=== PATIENT | female | born 1955 | race Caucasian/White ===

== ENCOUNTER → 2018-01-05 | Outpatient (CLI) | payer OTHER ==
[~2018-01-05] MED LIST: ACET325 PO; ACIDOPHILUS PR1 EACH PO; ALBU.083IS IH; ALBU3IS; ALBU3IS INH; ALBU8HFA2 INH; ALBU90I INH; ALBU90OI INH; ALBU90OI6 INH; AMIO200; AMIO200 PO; ASPI325 PO; AZIT250 PO; Aldactone25 MG PO; Amiodarone HCl200 MG PO; Azithromycin500 MG PO; BUME2; BUME2 PO; Benadryl 50 mg50 MG PO; Bumetanide2 MG PO; CALCAVITD PO; CALCIUM 600 +1 EAC1 PO; CARV25 PO; CARV3.125 PO; CARV6.25; CARV6.25 PO; CLIN150; CLIN150 PO; CLIN300 PO; CLON.5 PO; COLCRYS0.6 MG PO; CYCL10 PO; Coral Calcium1 EAC3 PO; DIGO.125 PO; DIGO.25 PO; DIPH12.5EL PO; DIPH25 PO; DIPH50 PO; DOCU100 PO; DOXY100 PO; ENDOCET PO; ERGO50000 PO; FAMO20 PO; FERR325 PO; FLONASE SENSIM9.9 ML; FLUSAL115; FLUSAL2505 IH; FLUSAL2505 INH; FURO20; FURO20 PO; FURO40 PO; Ferrous Sulfat325 M2 PO; GABA100 PO; GABA300 PO; GABA600 PO; GLARGINE INSULIN; GLIP10 PO; GLIP5 PO; GLIP5ER PO; GUAI100SY PO; Glucotrol Xl10 MG PO; HYDACE10B PO; HYDACE5 PO; HYDCHL25 PO; HYDR1TAB94 PO; INSR10I; INSUASPI INJ; INSUASPI SC; INSUASPI SQ; INSUASPI SUBQ; INSULANI SC; INSULANI SUBQ; INSULANPEN; INSULANPEN INJ; INSULANPEN SC; INSULANPEN SQ; IPRAIS NEB; Ipratr-Albuterol3 ML INH; Klor-Con 1010 MEQ PO; LISI5 PO; LORA1; LORA1 PO; LOSA25 PO; LOSA50 PO; Lantus100 UNIT/1 SQ; Lisinopril2.5 MG; MAGOXI400 PO; METF500 PO; METH10 PO; METPRE4DP PO; MONT10T PO; NYST100P TOP; NYST100SU MT; Norco 10-325 T1 EACH PO; Norco 5-325 Ta1 EACH PO; Novolin R100 UNIT/M; Novolog Fl100 UNIT/1 INJ; Novolog100 UNIT/2; OMEP20ER PO; OMEP40CA12 PO; OXYGEN; PANT40 PO; POTA10T PO; POTCHL10ER PO; POTCHL20ER PO; PRED10; PRENZ PO; PROM25 PO; Percocet 5-3251 EACH PO; RANI150 PO; RXCODGUASY PO; RXPROCODSY PO; SENN187 PO; SITA50T2 PO; SPIR25 PO; SPIR50 PO; STOOL SOFTENER100 MG PO; Singulair10 MG PO; TIOT18; TIOT18 IH; TIOT18 INH; TORSE20 PO; TOUJEO SOL300 UNIT/1; TOUJEO SOL300 UNIT/1 SC; TRULICITY0.75 MG/0. SC; VICODIN; WARF1 PO; WARF2 PO; WARF2.5 PO; WARF3 PO; WARF4 PO
[2018-01-05 17:44] LABS: U Benzodiazapine Screen DETECTED
[2018-01-05 17:45] LABS: U Amphetamine Screen Not Detected; U Barbituate Screen Not Detected; U Buprenorphine Screen Not Detected; U Cannabinoids Screen Not Detected; U Cocaine Screen Not Detected; U Methadone Screen Not Detected; U Methamphetamine Screen Not Detected; U Opiates Screen Not Detected; U Oxycodone Screen Not Detected; U Phencyclidine Screen Not Detected; U Propoxyphene Screen Not Detected
[2018-01-07 22:07] LABS: Alpha Hyrdroxyalprazolam Not Detected (NOTDET); Alpha hydroxytriazolam Not Detected (NOTDET); Alprazolam Not Detected (NOTDET); Confirm Clonazepam LC/MS Not Detected (NOTDET); Confirm Flunitrazepam LC/MS Not Detected (NOTDET); Diazepam Not Detected (NOTDET); Flurazepam Not Detected (NOTDET); Lorazepam 440.9 ng/mL (NOTDET); Midazolam Not Detected (NOTDET); Temazepam Not Detected (NOTDET)
== END ==
LOC: LAB 17:09
PROVIDERS: Internal Medicine
DX: Z51.81 Encounter for therapeutic drug level monitoring (principal); Z79.899 Other long term (current) drug therapy
CPT/HCPCS: G0480

== ENCOUNTER 2018-01-29 11:27 | Emergency (ER) | payer OTHER ==
[~2018-01-29] VITALS: Ht 160 cm; Wt 122.5 kg
[~2018-01-29 11:27] MED LIST changes: -COLCRYS0.6 MG PO; -HYDR1TAB94 PO; -Percocet 5-3251 EACH PO; -TOUJEO SOL300 UNIT/1 SC; -TRULICITY0.75 MG/0. SC
[2018-01-29] MEDS ORDERED: TOUJEO SOL300 UNIT/1 SC (12:12)
[2018-01-29] MEDS ORDERED: TRULICITY0.75 MG/0. SC (12:13)
[2018-01-29 13:21] LABS: International Normalized Ratio 1.89; Prothrombin Time Results 20.1 Sec (9.7-11.5)
[2018-01-29] MEDS ORDERED: WARF3 PO (13:58)
[2018-01-29] MEDS ORDERED: Percocet 5-3251 EACH PO (13:59)
[2018-08-02] MEDS ORDERED: HYDR1TAB94 PO (18:15)
[2018-09-21] MEDS ORDERED: CLIN300 PO (16:24)
[2018-09-21] MEDS ORDERED: COLCRYS0.6 MG PO (16:24)
== END 2018-01-29 14:07 | disposition home or self-care (01) ==
LOC: ER 11:27
PROVIDERS: Physician Assistant
DX: I82.4Z1 Acute embolism and thrombosis of unspecified deep veins of right distal lower extremity (principal); Z88.8 Allergy status to other drugs, medicaments and biological substances; Z88.6 Allergy status to analgesic agent; Z88.0 Allergy status to penicillin; Z88.2 Allergy status to sulfonamides; Z79.4 Long term (current) use of insulin; Z79.899 Other long term (current) drug therapy; Z79.01 Long term (current) use of anticoagulants; I11.0 Hypertensive heart disease with heart failure; I50.9 Heart failure, unspecified; I48.91 Unspecified atrial fibrillation; E66.01 Morbid (severe) obesity due to excess calories; J44.9 Chronic obstructive pulmonary disease, unspecified; E11.9 Type 2 diabetes mellitus without complications; K21.9 Gastro-esophageal reflux disease without esophagitis; Z87.891 Personal history of nicotine dependence
CPT/HCPCS: 36415; 85610; 93971; 99284

== ENCOUNTER → 2018-02-05 | Outpatient (CLI) | payer OTHER ==
[~2018-02-05] MED LIST changes: +COLCRYS0.6 MG PO; +HYDR1TAB94 PO; +Percocet 5-3251 EACH PO; +TOUJEO SOL300 UNIT/1 SC; +TRULICITY0.75 MG/0. SC
[2018-02-06 13:16] LABS: U Amphetamine Screen Not Detected; U Barbituate Screen Not Detected; U Benzodiazapine Screen DETECTED; U Buprenorphine Screen Not Detected; U Cannabinoids Screen Not Detected; U Cocaine Screen Not Detected; U Methadone Screen Not Detected; U Methamphetamine Screen Not Detected; U Opiates Screen Not Detected; U Oxycodone Screen DETECTED; U Phencyclidine Screen Not Detected; U Propoxyphene Screen Not Detected
[2018-02-09 18:42] LABS: Alpha Hyrdroxyalprazolam Not Detected (NOTDET); Alpha hydroxytriazolam Not Detected (NOTDET); Alprazolam Not Detected (NOTDET); Confirm Clonazepam LC/MS Not Detected (NOTDET); Confirm Flunitrazepam LC/MS Not Detected (NOTDET); Diazepam Not Detected (NOTDET); Flurazepam Not Detected (NOTDET); Lorazepam 410.9 ng/mL (NOTDET); Midazolam Not Detected (NOTDET); Temazepam Not Detected (NOTDET)
[2018-02-09 18:56] LABS: Codeine Not Detected (NOTDET); Hydrocodone Not Detected (NOTDET); Hydromorphone Not Detected (NOTDET); Morphine Not Detected (NOTDET); Norhydrocodone Not Detected (NOTDET); Noroxycodone 204 ng/mL (NOTDET)
== END ==
LOC: LAB SHORT 12:53 → LAB 12:53
PROVIDERS: Internal Medicine
DX: Z51.81 Encounter for therapeutic drug level monitoring (principal); Z79.899 Other long term (current) drug therapy
CPT/HCPCS: G0480

== ENCOUNTER 2018-04-13 11:16 | Emergency (ER) | payer OTHER ==
[~2018-04-13] VITALS: Ht 160 cm; Wt 121.6 kg
[~2018-04-13 11:16] MED LIST changes: -COLCRYS0.6 MG PO; -HYDR1TAB94 PO
[2018-04-13 13:17] LABS: International Normalized Ratio 1.89
[2018-04-13] MEDS ORDERED: Percocet 5-3251 EACH PO (14:01)
== END 2018-04-13 14:26 | disposition home or self-care (01) ==
LOC: ER 11:16
PROVIDERS: Physician Assistant
DX: M25.462 Effusion, left knee (principal); R79.1 Abnormal coagulation profile; M17.12 Unilateral primary osteoarthritis, left knee; I11.0 Hypertensive heart disease with heart failure; I50.9 Heart failure, unspecified; I48.91 Unspecified atrial fibrillation; J44.9 Chronic obstructive pulmonary disease, unspecified; E11.9 Type 2 diabetes mellitus without complications; K21.9 Gastro-esophageal reflux disease without esophagitis; F17.210 Nicotine dependence, cigarettes, uncomplicated; Z88.1 Allergy status to other antibiotic agents; Z88.6 Allergy status to analgesic agent; Z88.0 Allergy status to penicillin; Z88.2 Allergy status to sulfonamides; Z88.8 Allergy status to other drugs, medicaments and biological substances; Z79.899 Other long term (current) drug therapy; Z79.4 Long term (current) use of insulin; Z79.01 Long term (current) use of anticoagulants
CPT/HCPCS: 29580; 73564; 85610; 93971; 99284

== ENCOUNTER → 2018-11-06 | Outpatient (CLI) | payer OTHER ==
[~2018-11-06] MED LIST changes: +COLCRYS0.6 MG PO; +HYDR1TAB94 PO
[2018-11-06 17:49] LABS: U Amphetamine Screen Not Detected; U Barbituate Screen Not Detected; U Benzodiazapine Screen DETECTED; U Buprenorphine Screen Not Detected; U Cannabinoids Screen Not Detected; U Cocaine Screen Not Detected; U Methadone Screen Not Detected; U Methamphetamine Screen Not Detected; U Opiates Screen Not Detected; U Oxycodone Screen Not Detected; U Phencyclidine Screen Not Detected; U Propoxyphene Screen Not Detected
== END | disposition home or self-care (01) ==
LOC: LAB 11:29 → LAB SHORT 11:29
PROVIDERS: Internal Medicine
DX: Z51.81 Encounter for therapeutic drug level monitoring (principal); Z79.891 Long term (current) use of opiate analgesic
CPT/HCPCS: G0480

== ENCOUNTER 2019-01-13 09:30 | Emergency (ER) | payer OTHER ==
[~2019-01-13] VITALS: Ht 160 cm; Wt 104.3 kg
[2019-01-13] MEDS ORDERED: Percocet 5-3251 EACH PO (11:16)
[2019-01-13] MEDS ORDERED: Neurontin 300300 MG PO (11:16)
== END 2019-01-13 11:27 | disposition home or self-care (01) ==
LOC: ER 09:30
DX: M54.30 Sciatica, unspecified side (principal); I50.9 Heart failure, unspecified; I48.91 Unspecified atrial fibrillation; J44.9 Chronic obstructive pulmonary disease, unspecified; E11.9 Type 2 diabetes mellitus without complications; K21.9 Gastro-esophageal reflux disease without esophagitis; F17.200 Nicotine dependence, unspecified, uncomplicated; Z95.0 Presence of cardiac pacemaker; Z88.0 Allergy status to penicillin; Z88.2 Allergy status to sulfonamides; Z88.8 Allergy status to other drugs, medicaments and biological substances; Z88.6 Allergy status to analgesic agent; Z79.01 Long term (current) use of anticoagulants; Z79.4 Long term (current) use of insulin; Z79.899 Other long term (current) drug therapy
CPT/HCPCS: 73502; 99283-25

== ENCOUNTER 2019-02-08 12:10 | Emergency (ER) | payer OTHER ==
[~2019-02-08] VITALS: Ht 160 cm; Wt 104.3 kg
[~2019-02-08 12:10] MED LIST changes: +Neurontin 300300 MG PO
[2019-02-08 12:57] LABS: BASOPHILS ABSOLUTE AUTO 0.08 K/mm3 (0.00-0.23); BASOPHILS PERCENT AUTO 1 % (0-2); EOSINOPHILS ABSOLUTE AUTO 0.13 K/mm3 (0.00-0.68); EOSINOPHILS PERCENT AUTO 1 % (0-6); Hematocrit 48.8 % (33.0-51.0); Hemoglobin 15.3 g/dL (11.5-16.0); IMMATURE GRAN ABSOLUTE AUTO 0.17 K/mm3 (0.00-0.10); IMMATURE GRAN PERCENT AUTO 1 % (0-1); LYMPHOCYTES ABSOLUTE AUTO 2.77 K/mm3 (0.84-5.20); LYMPHOCYTES PERCENT AUTO 17 % (21-46); MONOCYTES ABSOLUTE AUTO 1.37 K/mm3 (0.16-1.47); MONOCYTES PERCENT AUTO 8 % (4-13); Mean Corpuscular HGB 30.8 pg (26.0-34.0); Mean Corpuscular HGB Conc 31.4 g/dL (31.5-36.5); Mean Corpuscular Volume 98 fL (80-100); Mean Platelet Volume 11.4 fL (9.1-12.4); NEUTROPHILS ABSOLUTE AUTO 11.95 K/mm3 (1.96-9.15); NEUTROPHILS PERCENT AUTO 73 % (41-73); Platelet Count 230 K/mm3 (150-400); RDW Coefficient Variation 15.9 % (11.7-14.2); RDW Standard Deviation 57.6 fL (35.1-46.3); Red Blood Cell Count 4.97 M/mm3 (3.80-5.20); White Blood Cell Count 16.47 K/mm3 (4.00-11.30)
[2019-02-08 13:21] LABS: Albumin, Blood 3.1 g/dL (3.4-5.0); Albumin/Globulin Ratio 0.7 (0.8-1.8); Bilirubin, Total 0.8 mg/dL (0.1-1.0); Bun/Creatinine Ratio 11.6 (12.0-20.0); Calcium, Blood 8.6 mg/dL (8.5-10.1); Creatinine, Blood 1.29 mg/dL (0.40-1.00); Globulin, Blood 4.7 g/dL (2.2-4.0); Potassium, Blood 4.6 mmol/L (3.5-5.5); Total Protein, Blood 7.8 g/dL (6.4-8.2)
== END 2019-02-08 14:15 | disposition left against medical advice (07) ==
LOC: ER 12:10
PROVIDERS: Physician Assistant
DX: Z53.21 Procedure and treatment not carried out due to patient leaving prior to being seen by health care provider (principal)
CPT/HCPCS: 36415; 80053; 85025; 99283

== ENCOUNTER 2019-02-18 10:56 | Emergency (ER) | payer OTHER ==
[~2019-02-18] VITALS: Ht 160 cm; Wt 104.3 kg
[2019-02-18] MEDS ORDERED: Voltaren100 GM TOP (11:37)
[2019-02-18] MEDS ORDERED: Roxicodone5 MG PO (11:37)
== END 2019-02-18 12:06 | disposition home or self-care (01) ==
LOC: ER 10:56
DX: M25.552 Pain in left hip (principal); Z88.8 Allergy status to other drugs, medicaments and biological substances; Z88.6 Allergy status to analgesic agent; Z88.0 Allergy status to penicillin; Z88.2 Allergy status to sulfonamides; Z88.1 Allergy status to other antibiotic agents; Z79.899 Other long term (current) drug therapy; Z79.4 Long term (current) use of insulin; Z79.01 Long term (current) use of anticoagulants; E11.9 Type 2 diabetes mellitus without complications; I50.9 Heart failure, unspecified; I48.91 Unspecified atrial fibrillation; F17.210 Nicotine dependence, cigarettes, uncomplicated
CPT/HCPCS: 99283

== ENCOUNTER 2019-04-21 12:22 | Emergency (ER) | payer OTHER ==
[~2019-04-21] VITALS: Ht 160 cm; Wt 104.3 kg
[~2019-04-21 12:22] MED LIST changes: +Roxicodone5 MG PO; +Voltaren100 GM TOP
[2019-04-21] MEDS ORDERED: Percocet 5-3251 EACH PO (13:54)
[2019-04-21] MEDS ORDERED: Voltaren100 GM TOP (13:54)
[2019-04-21] MEDS ORDERED: Robaxin500 MG PO (13:54)
== END 2019-04-21 14:00 | disposition home or self-care (01) ==
LOC: ER 12:22
DX: M54.41 Lumbago with sciatica, right side (principal); Z88.8 Allergy status to other drugs, medicaments and biological substances; Z88.6 Allergy status to analgesic agent; Z88.0 Allergy status to penicillin; Z88.2 Allergy status to sulfonamides; Z88.1 Allergy status to other antibiotic agents; Z79.899 Other long term (current) drug therapy; Z79.4 Long term (current) use of insulin; Z79.01 Long term (current) use of anticoagulants; I48.91 Unspecified atrial fibrillation; I50.9 Heart failure, unspecified; J44.9 Chronic obstructive pulmonary disease, unspecified; E11.9 Type 2 diabetes mellitus without complications; K21.9 Gastro-esophageal reflux disease without esophagitis; F17.210 Nicotine dependence, cigarettes, uncomplicated
CPT/HCPCS: 99283

== ENCOUNTER 2019-05-08 14:34 | Emergency (ER) | payer OTHER ==
[~2019-05-08] VITALS: Ht 157.5 cm; Wt 104.3 kg
[~2019-05-08 14:34] MED LIST changes: +Robaxin500 MG PO
[2019-05-08] MEDS ORDERED: Polytrim Eye Dr10 ML LEFTEYE (14:45)
[2019-05-08] MEDS ORDERED: Prednisone20 MG PO (14:45)
[2019-05-08] MEDS ORDERED: Percocet 5-3251 EACH PO (14:45)
== END 2019-05-08 15:09 | disposition home or self-care (01) ==
LOC: ER 14:34
DX: H10.023 Other mucopurulent conjunctivitis, bilateral (principal); M54.30 Sciatica, unspecified side; I48.91 Unspecified atrial fibrillation; I11.0 Hypertensive heart disease with heart failure; I50.9 Heart failure, unspecified; J44.9 Chronic obstructive pulmonary disease, unspecified; F17.210 Nicotine dependence, cigarettes, uncomplicated; Z88.6 Allergy status to analgesic agent; Z88.2 Allergy status to sulfonamides; Z88.1 Allergy status to other antibiotic agents; Z88.0 Allergy status to penicillin; Z79.899 Other long term (current) drug therapy; E11.9 Type 2 diabetes mellitus without complications
CPT/HCPCS: 99283; A9270-GY

== ENCOUNTER 2019-05-18 10:57 | Observation (INO) | payer OTHER ==
[~2019-05-18] VITALS: Ht 160 cm; Wt 100.4 kg
[~2019-05-18 10:57] MED LIST changes: +Polytrim Eye Dr10 ML LEFTEYE; +Prednisone20 MG PO
[2019-05-18 11:56] LABS: BASOPHILS ABSOLUTE AUTO 0.07 K/mm3 (0.00-0.23); BASOPHILS PERCENT AUTO 0 % (0-2); EOSINOPHILS ABSOLUTE AUTO 0.19 K/mm3 (0.00-0.68); EOSINOPHILS PERCENT AUTO 1 % (0-6); Hematocrit 50.4 % (33.0-51.0); Hemoglobin 16.7 g/dL (11.5-16.0); IMMATURE GRAN ABSOLUTE AUTO 0.17 K/mm3 (0.00-0.10); IMMATURE GRAN PERCENT AUTO 1 % (0-1); LYMPHOCYTES ABSOLUTE AUTO 3.12 K/mm3 (0.84-5.20); LYMPHOCYTES PERCENT AUTO 20 % (21-46); MONOCYTES ABSOLUTE AUTO 1.26 K/mm3 (0.16-1.47); MONOCYTES PERCENT AUTO 8 % (4-13); Mean Corpuscular HGB 29.8 pg (26.0-34.0); Mean Corpuscular HGB Conc 33.1 g/dL (31.5-36.5); Mean Corpuscular Volume 90 fL (80-100); Mean Platelet Volume 12.5 fL (9.1-12.4); NEUTROPHILS ABSOLUTE AUTO 10.87 K/mm3 (1.96-9.15); NEUTROPHILS PERCENT AUTO 69 % (41-73); Platelet Count 223 K/mm3 (150-400); RDW Coefficient Variation 14.1 % (11.7-14.2); RDW Standard Deviation 46.4 fL (35.1-46.3); White Blood Cell Count 15.68 K/mm3 (4.00-11.30)
[2019-05-18 12:15] LABS: Albumin/Globulin Ratio 0.8 (0.8-1.8); Bilirubin, Total 0.7 mg/dL (0.1-1.0); Bun/Creatinine Ratio 14.5 (12.0-20.0); Calcium, Blood 8.9 mg/dL (8.5-10.1); Creatinine, Blood 1.38 mg/dL (0.40-1.00); Globulin, Blood 3.8 g/dL (2.2-4.0); Potassium, Blood 4.8 mmol/L (3.5-5.5); Total Protein, Blood 6.8 g/dL (6.4-8.2)
[2019-05-18 13:10] LABS: Free Thyroxine 1.56 ng/dL (0.70-1.60)
[2019-05-18 13:12] LABS: Thyroid Stimulating Hormone 1.87 uIU/mL (0.360-4.800)
[2019-05-18] MEDS ORDERED: GLIP5 PO (13:37)
[2019-05-18] MEDS ORDERED: Lisinopril2.5 MG PO (13:37)
[2019-05-18] MEDS ORDERED: Calcium + Vita1 EACH PO (13:38)
[2019-05-18] MEDS ORDERED: CARV6.25 PO (13:38)
[2019-05-18] MEDS ORDERED: PROM25 PO (13:39)
[2019-05-18] MEDS ORDERED: WARF3 PO (13:39)
[2019-05-18] MEDS ORDERED: MONT10T PO (13:39)
[2019-05-18] MEDS ORDERED: SPIR25 PO (13:39)
[2019-05-18] MEDS ORDERED: MAGOXI400 PO (13:40)
[2019-05-18] MEDS ORDERED: BANOPHEN50 MG PO (13:40)
[2019-05-18] MEDS ORDERED: FERSU300 PO (13:40)
[2019-05-18] MEDS ORDERED: Januvia50 MG PO (13:41)
[2019-05-18] MEDS ORDERED: BUME2 PO (13:41)
[2019-05-18] MEDS ORDERED: GABA300 PO (13:42)
[2019-05-18] MEDS ORDERED: TRULICITY0.75 MG/0. SC (13:42)
[2019-05-18] MEDS ORDERED: PANT40 PO (13:42)
[2019-05-18] MEDS ORDERED: NOVOLOG FL100 UNIT/1 SC (13:44)
[2019-05-18] MEDS ORDERED: TOUJEO SOL300 UNIT/1 SC (13:45)
[2019-05-18] MEDS ORDERED: SOMA250 MG PO (13:47)
[2019-05-18] MEDS ORDERED: Zofran4 MG PO (16:38)
[2019-05-18] MEDS ORDERED: ALLO100 PO (16:39)
--- NOTE | 2019-05-18 17:22 | NUR ---
PT ARRIVAL PT ARRIVE ON UNIT APROX 1620. PT IS A&Ox4 AND SBA TRANSFER FROM THE [place] TO BED. PT IS CURRENTLY ON 2L NC WITH O2 SATS IN THE 90'S. PT DENIES ANY CHEST PAIN PRESSURE, N/V OR ABNORMAL SOB AT THIS TIME. PT STATES THAT SHE HAS NOT BEEN USING HER O2 AT HOME DUE TO IT "BEING BROKEN AND THE OXYGEN PLACE NOT CALLING ME BACK." PT ALSO STATED THAT SHE HAS NOT BEEN TAKING HER BUMEX PRESCRIBED DUE TO HER HIP PAIN. PT'S L/S COARSE AND DIM T/O. BT PRESENT AND HYPOACTIVE, ABD IS SOFT AND NONTENDER TO PALP. TELE WAS PLACED AND PT IS CURRENTLY PACED IN THE 60'S. CALL LIGHT IN REACH, BED IS LOCKED AND LOW WILL CONTINUE TO MONITOR.
[2019-05-18 19:02] LABS: International Normalized Ratio 1.47
--- NOTE | 2019-05-18 19:45 | NUR ---
ASSUMED CARE AND PROVIDER CONTACTED PT CURRENTLY LYING IN BED ON HER SIDE HOLDING ONTO BED'S SIDERAIL REPORTING EXTREME PAIN TO HER R HIP AND DOWN HER LEG RELATING TO "HER SCIATIC PAIN". PT REPORTS THAT SHE TAKES SOMA, TYLENOL, DILAUDID, OR OXYCODONE AT HOME TO HELP WITH THIS PAIN. STATES THAT SHE IS ALLERGIC TO ORDERED PAIN MEDICATION, TRAMADOL- REPORTS IT GIVES HER BAD RASH THROUGHOUT HER BODY WHEN TAKEN. PROVIDER CONTACTED AND ORDERS RECEIVED FOR HOME DOSE OF SOMA WELL TYLENOL. PT NOTED TO HAVE UNNA BOOTS TO BLE'S THAT SHE STATES WERE PLACED BY VASCULAR TECHNICIAN FOR "LEAKING FROM HER LEGS AND START OF SORES". PEDAL PULSES PALPABLE, CAPILLARY REFILL WNL. DRESSINGS LEFT IN PLACE AT THIS TIME- WILL DISCUSS REMOVAL WITH PHYSICIAN IN THE AM. WILL CONTINUE WITH MONITORING AND ASSESSMENT. BED IN LOW POSITION, CALL LIGHT IN REACH.
[2019-05-19 04:05] LABS: International Normalized Ratio 1.47
[2019-05-19 04:11] LABS: Bun/Creatinine Ratio 15.3 (12.0-20.0); Calcium, Blood 8.3 mg/dL (8.5-10.1); Creatinine, Blood 1.5 mg/dL (0.40-1.00); Free Thyroxine 1.35 ng/dL (0.70-1.60)
[2019-05-19 04:13] LABS: Triiodothyronine, Free 1.86 pg/mL (2.18-3.98)
--- NOTE | 2019-05-19 05:45 | NUR ---
SHIFT SUMMARY PT HAS REMAINED AOX4 THROUGHOUT SHIFT. VSS. PLEASANT AND COOPERATIVE WITH CARE. PT CONTINUES TO AMBULATE WITH [facility] ASSIST TO [facility] [place], BUT IS FREQUENTLY INCONTINENT OF URINE DUE TO LACK OF MOTIVATION FOR AMBULATION. PT REPORTING CONTINUED PAIN TO R HIP/LEG THAT IS CHRONIC FOR HER AND DECREASES MOVMENT BECAUSE OF THIS PAIN. PT ENCOURGED TO REPOSITION TO ASSIST WITH PAIN RELIEF, HEATING PAD PROVIDED IN ADDITION TO MEDICATIONS FOR PAIN. O2 SATS HAVE REMAINED >90% ON 2L VIA NASAL CANNULA, WHICH IS BASELINE O2 USAGE. 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 CARDIAC RHYTHM HAS REMAINED NORMAL SINUS WITH BBB AND PVC'S. NO OTHER CHANGES NOTED FROM INITIAL ASSESSMENT. WILL CONTINUE TO MONITOR AND REPORT TO ONCOMING SHIFT RN. BED IN LOW POSITION, CALL LIGHT IN REACH.
--- NOTE | 2019-05-19 07:50 | NUR ---
NURSING PCU DAYSHIFT: Assumed care of pt at approx 0700. A/O, pleasant, cooperative w/care. Noted general weakness w/chronic neuropathy of BLE, ambulates and transfers w/SBA. C/O 5/10 R hip pain r/t sciatica per pt, treating w/meds, heat application, and positioning. Skin is fairly intact, discoloration of BLE noted after UNNA boots removed. Tele in place, NSR w/BBB and PVC's, no c/o CP/pressure, SBP 120's, trace BLE edema. L/S dim in mid and lower lobes, mild dyspnea w/exertion, O2 sat 99% on 2L NC, occ cough producing clear/stringy sputum. Abd SNT, BT+, voiding w/o difficulty though urine is cloudy, attends in place for stress incontinence. PIV, s/l. No s/s of acute distress at this time. Pt denies any current needs or questions regarding plan of care. Call light in reach and pt is able to use w/o difficulty. Awaiting rounding from PMD, cont to monitor for any changes.
--- NOTE | 2019-05-19 11:51 | NUR ---
Patient is lying in bed and alert. Patient openly shares about her family, her medical history and her mary background. Patient shares about her excitement and nervousness in being discharged from the hospital. I listen empathically and provide companionship, emotional support, pastoral drug and alcohol counselor and prayer. Patient responds well to all interventions and shows signs of reduced stress.
--- NOTE | 2019-05-19 14:31 | NUR ---
Echocardiogram completed.
--- NOTE | 2019-05-19 16:09 | NUR ---
NURSING PCU DAYSHIFT SUMMARY: No significant changes noted t/o the shift. VS remained stable, respiratory and cardiac status unchanged. Seen by PMD, new d/o received, cardiology consult called. Medical Examiner at bedside, EKG completed, ECHO done. Pt may receive discharge home d/o, awaiting echo results. Home O2 eval to be completed. Pt denies any questions/needs at this time, call light in reach, cont to monitor for any changes.
[2019-05-19] MEDS ORDERED: Pacerone100 MG PO (17:44)
== END 2019-05-19 18:20 | disposition home or self-care (01) ==
LOC: ER 10:57 → PCU 10:58
PROVIDERS: Emergency Medicine; ADMIT Internal Medicine
DX: T82.198A Other mechanical complication of other cardiac electronic device, initial encounter (principal); I13.0 Hypertensive heart and chronic kidney disease with heart failure and stage 1 through stage 4 chronic kidney disease, or unspecified chronic kidney disease; I50.20 Unspecified systolic (congestive) heart failure; E11.22 Type 2 diabetes mellitus with diabetic chronic kidney disease; N18.3 Chronic kidney disease, stage 3 (moderate); I48.91 Unspecified atrial fibrillation; J44.9 Chronic obstructive pulmonary disease, unspecified; F17.210 Nicotine dependence, cigarettes, uncomplicated; Z79.01 Long term (current) use of anticoagulants
CPT/HCPCS: 36415; 71046; 80048; 80053; 82947; 83735; 84439; 84443; 84481; 84484; 85025; 85610; 87081; 93005; 93010; 94010; 94664; 94667; 94760; 94761; 96374; 96375; 98960; 99285-25; 99407; A9270; C8929; G0378; J1815; J2405; J3010; Q9957